=== PATIENT | female | born 1960 | race Caucasian/White ===

== ENCOUNTER 2017-01-30 09:16 | Emergency (ER) | payer OTHER, MEDICAID ==
[~2017-01-30] VITALS: Ht 160 cm; Wt 80.7 kg
[~2017-01-30 09:16] MED LIST: ALBU2TAB4; AMIT25TA9; DIPH25CA39; GLIP-110; LORA-340; METF500T5; RABE20TA5; RESPIRDAL; TEMA15CA91; [UNRECOGNIZED DRUG - OTHER]; [UNRECOGNIZED DRUG - OTHER]
[2017-01-30] MEDS ORDERED: SODIUM CHLORIDE 0.9% 1,000 ML IV ONE (10:01)
[2017-01-30] MEDS ORDERED: InsuLIN REG 1unit/0.01ml Soln (100units/ml) IV ONE ×2 (10:15→12:00)
[2017-01-30 10:32] LABS: Basophils # (auto) 0 uL; Basophils % (auto) 0.3 % (0.0-2.0); DEFINITIVE VIEW TRANSMISSION; Eosinophils # (auto) 0.3 uL; Eosinophils % (auto) 3.1 % (0.0-7.0); Hematocrit 43.2 % (36.0-46.0); Hemoglobin 13.9 g/dL (12.2-16.2); Lymphocytes % (auto) 23.6 % (10.0-50.0); Mean Corpuscular Hemoglobin 26.7 pg (28.0-32.0); Mean Corpuscular Hgb Conc. 32.3 g/dL (32.0-36.0); Mean Corpuscular Volume 82.8 fL (80.0-100.0); Mean Platelet Volume 9.6 fL (7.4-10.4); Monocytes # (auto) 0.5 uL; Monocytes % (auto) 6.5 % (0.0-12.0); Neutrophils # (auto) 5.6 uL; Neutrophils % (auto) 66.5 % (37.0-80.0); Platelet Count (auto) 228 10^3/uL (140-450); Red Cell Distribution Width 13.1 % (11.6-16.0); White Blood Cell 8.4 10^3/uL (4.4-10.8)
[2017-01-30 10:44] LABS: Partial Thromboplastin Time 24.9 sec (22.64-33.71); Prothrombin Time 9.5 sec (9.37-12.3)
[2017-01-30 10:47] LABS: INR 0.87 (0.9-1.15)
[2017-01-30 10:50] LABS: Albumin 3.3 g/dL (3.4-5.0); Anion Gap 9 (5-15); Blood Urea Nitrogen 26 mg/dL (7-18); Calcium 8.4 mg/dL (8.5-10.1); Carbon Dioxide 25 mmol/L (21-32); Chloride 101 mmol/L (98-107); HEMOLYSIS - HIL 1; ICTERIA - HIL 1; LIPEMIA - HIL 1; Potassium 4.9 mmol/L (3.5-5.1); Sodium 135 mmol/L (136-145)
[2017-01-30 10:52] LABS: Aspartate Aminotransferase 22 U/L (15-37); GFR African American 100 mL/min; GFR Non-African American 82 mL/min
[2017-01-30 10:55] LABS: BUN/Creatinine Ratio 33.8; Glucose 426 mg/dL (74-106)
[2017-01-30 11:08] LABS: Alkaline Phosphatase 141 U/L (45-117); Bilirubin, Total 0.1 mg/dL (0.2-1.0); Total Protein 7.2 g/dL (6.4-8.2)
[2017-01-30 11:16] LABS: Urine RBC None Seen /hpf (0 - 4)
[2017-01-30 11:22] LABS: Urine Bilirubin Negative (Negative); Urine Blood Negative /uL (Negative); Urine Color Yellow (Yellow); Urine Ketone Negative (Negative); Urine Nitrite Negative (Negative); Urine Squamous Epithelial Cell FEW /hpf (<5); Urine Urobilinogen Normal (Negative); Urine pH 5.5 (5.0-8.0)
[2017-01-30 11:24] LABS: Urine Glucose 4+ mg/dL (Normal)
[2017-01-30 12:11] VITALS: BP 134/69
== END 2017-01-30 13:02 | disposition home or self-care (01) ==
LOC: ER 09:21
DX: E11.65 Type 2 diabetes mellitus with hyperglycemia (principal); J45.909 Unspecified asthma, uncomplicated; K21.9 Gastro-esophageal reflux disease without esophagitis; F17.210 Nicotine dependence, cigarettes, uncomplicated; Z79.899 Other long term (current) drug therapy; Z90.710 Acquired absence of both cervix and uterus; Z88.0 Allergy status to penicillin
CPT/HCPCS: 36415; 71010; 80053; 80307; 81001; 82962; 84484; 85025; 85610; 85730; 96361; 96374; 96376; 99285; J1815; J7030

== ENCOUNTER 2017-09-15 12:09 | Inpatient (IN) | payer OTHER, MEDICAID ==
[~2017-09-15] VITALS: Ht 160 cm; Wt 87.3 kg
[~2017-09-15 12:09] MED LIST changes: -DIPH25CA39; +DIPH25CA39 PO; -GLIP-110; +GLIP-110 PO; -METF500T5; +METF500T5 PO; -RABE20TA5; +RABE20TA5 PO
[2017-09-15] MEDS ORDERED: SODIUM CHLORIDE 0.9% 1,000 ML IV ONE (12:19)
[2017-09-15] MEDS ORDERED: HALOPERIDOL LACTATE 5 MG/ML INJ VIAL IM ONE (12:30)
[2017-09-15] MEDS ORDERED: LORazepam 2MG/ML-1ML VIAL IV ONE (12:30)
[2017-09-15] MEDS ORDERED: diphenhdrAMINE HCL 50 MG/1 ML VL IV ONE (12:30)
[2017-09-15 12:59] LABS: Basophils # (auto) 0.1 uL; Basophils % (auto) 0.7 % (0.0-2.0); Eosinophils # (auto) 0.3 uL
[2017-09-15 13:02] LABS: Eosinophils % (auto) 1.6 % (0.0-7.0); Hematocrit 44.1 % (36.0-46.0); Hemoglobin 13.9 g/dL (12.2-16.2); Lymphocytes # (auto) 1.9 uL; Lymphocytes % (auto) 10.9 % (10.0-50.0); Mean Corpuscular Hemoglobin 26.3 pg (28.0-32.0); Mean Corpuscular Hgb Conc. 31.6 g/dL (32.0-36.0); Monocytes # (auto) 1.4 uL; Neutrophils # (auto) 13.4 uL; Neutrophils % (auto) 78.8 % (37.0-80.0); Platelet Count (auto) 325 10^3/uL (140-450); Red Blood Cells 5.31 10^6/uL (4.0-5.20); Red Cell Distribution Width 15.4 % (11.8-14.3)
[2017-09-15 13:15] LABS: Albumin 3.9 g/dL (3.4-5.0); BUN/Creatinine Ratio 28.1; Calcium 9.2 mg/dL (8.5-10.1); Potassium 4.2 mmol/L (3.5-5.1)
[2017-09-15 13:18] LABS: Bilirubin, Total 0.3 mg/dL (0.2-1.0); Total Protein 7.8 g/dL (6.4-8.2)
[2017-09-15 15:53] LABS: Alcohol, Urine < 3.0 mg/dL (0-5); Amphetamine Screen, Urine POSITIVE (NEGATIVE); Barbiturate Scree,Urine NEGATIVE (NEGATIVE); Benzodiazephine Screen, Urine NEGATIVE (NEGATIVE); Cannabinoid Screen, Urine NEGATIVE (NEGATIVE); Cocaine Screen, Urine NEGATIVE (NEGATIVE); Opiate Scree,Urine NEGATIVE (NEGATIVE); Phencyclidine Screen, Urine NEGATIVE (NEGATIVE)
[2017-09-15 16:05] LABS: Urine Bacteria NONE SEEN /hpf (None Seen); Urine Blood Negative /uL (Negative); Urine Hyaline Cast FEW /lpf (0 - 2); Urine Mucus FEW (None Seen); Urine Specific Gravity 1.016 (1.001-1.035); Urine WBC 1 /hpf (0 - 5)
[2017-09-15] MEDS: diphenhdrAMINE HCL 25 MG CAP PO SCH (21:15)
[2017-09-15] MEDS ORDERED: TEMAZEPAM 15 MG CAP PO PRN ×2 (21:15→21:30)
[2017-09-15] MEDS ORDERED: SODIUM CHLORIDE 0.9% 1,000 ML IV SCH (21:25)
[2017-09-15] MEDS ORDERED: MORPHINE SULF INJ 2 MG/ML SYRINGE 1ML IV PRN ×2 (21:30)
[2017-09-15] MEDS ORDERED: DIAZEPAM 5 MG/ML 2ML SYRG IV PRN (21:30)
[2017-09-15] MEDS ORDERED: ACETAMINOPHEN 325 MG TAB PO PRN ×2 (21:30)
[2017-09-15] MEDS ORDERED: NITROGLYCERIN 0.4 MG SL TAB SL PRN (21:30)
[2017-09-15] MEDS ORDERED: HYDROcodone-ACET 5/325MG TAB PO PRN (21:30)
[2017-09-15] MEDS ORDERED: DEXTROSE (50%) 50ML SYRG IV ONE (21:30)
[2017-09-15] MEDS ORDERED: DEXTROSE (50%) 50ML SYRG IV PRN (21:30)
[2017-09-15] MEDS ORDERED: ONDANSETRON HCL 4 MG/2 ML VIAL IV PRN ×2 (21:30)
[2017-09-15] MEDS: SODIUM CHLORIDE 0.9% 1,000 ML IV SCH (21:55)
[2017-09-15] MEDS: FAMOTIDINE 20 MG TAB PO SCH (22:00)
[2017-09-15] MEDS ORDERED: ACCU-CHEK COMFORT CURVE STRIP VI ONE (22:00)
[2017-09-15] MEDS ORDERED: InsuLIN REG 1unit/0.01ml Soln (100units/ml) SC ONE (22:00)
[2017-09-15] MEDS: risperiDONE 1 MG TAB PO SCH (22:00)
[2017-09-15] MEDS: AMITRIPTYLINE HCL 25 MG TAB PO SCH (22:00)
[2017-09-15] MEDS ORDERED: clonazePAM 0.5 MG TAB PO SCH (22:00)
[2017-09-15] MEDS ORDERED: DEXAMETHASONE SOD PHOS 10MG/1ML VIAL INJ IV ONE (22:00)
[2017-09-15 22:30] VITALS: BP 144/70
[2017-09-16] MEDS: ACCU-CHEK COMFORT CURVE STRIP VI SCH ×4 (00:06→17:38)
[2017-09-16] MEDS: InsuLIN REG 1unit/0.01ml Soln (100units/ml) SC SCH ×4 (00:06→17:38)
[2017-09-16] MEDS: diphenhdrAMINE HCL 25 MG CAP PO SCH ×3 (05:15→20:59)
[2017-09-16 05:40] LABS: Basophils # (auto) 0 uL; Basophils % (auto) 0.2 % (0.0-2.0); Eosinophils # (auto) 0 uL; Hematocrit 37.6 % (36.0-46.0); Hemoglobin 12.3 g/dL (12.2-16.2); Lymphocytes # (auto) 0.9 uL; Lymphocytes % (auto) 10.7 % (10.0-50.0); Mean Corpuscular Hgb Conc. 32.7 g/dL (32.0-36.0); Mean Corpuscular Volume 82.7 fL (80.0-100.0); Monocytes # (auto) 0.1 uL; Monocytes % (auto) 1.5 % (0.0-12.0); Neutrophils # (auto) 7.6 uL; Neutrophils % (auto) 87.6 % (37.0-80.0); Nucleated Red Blood Cells % 0.4 %; Platelet Count (auto) 246 10^3/uL (140-450); Red Blood Cells 4.55 10^6/uL (4.0-5.20); Red Cell Distribution Width 15.4 % (11.8-14.3); White Blood Cell 8.7 10^3/uL (4.4-10.8)
[2017-09-16 05:57] VITALS: BP 121/59
[2017-09-16 06:05] LABS: BUN/Creatinine Ratio 30.8; Bilirubin, Total 0.3 mg/dL (0.2-1.0); Calcium 7.7 mg/dL (8.5-10.1); Magnesium 2.3 mg/dL (1.6-2.6); Phosphorus 2.9 mg/dL (2.5-4.90); Potassium 4.2 mmol/L (3.5-5.1); Total Protein 6.5 g/dL (6.4-8.2)
[2017-09-16] MEDS: SODIUM CHLORIDE 0.9% 1,000 ML IV SCH ×3 (07:52→21:00)
[2017-09-16] MEDS: glipiZIDE 5 MG TAB PO SCH (08:49)
[2017-09-16] MEDS: metFORMIN HYDROCHLORIDE 500 MG TAB PO SCH ×2 (08:51→17:38)
[2017-09-16 09:00] VITALS: BP 118/70
[2017-09-16] MEDS: PARoxetine 20 MG TAB PO SCH (11:28)
[2017-09-16] MEDS: FAMOTIDINE 20 MG TAB PO SCH ×2 (11:28→20:58)
[2017-09-16] MEDS: ENOXAPARIN SOD 40 MG/0.4 ML SYRINGE SC SCH (11:29)
[2017-09-16] MEDS: clonazePAM 0.5 MG TAB PO SCH (11:29)
[2017-09-16] MEDS: ALBUTEROL SULF 2 MG/5ML ORAL SYRUP PO SCH (12:04)
[2017-09-16 13:00] VITALS: BP 97/53
[2017-09-16] MEDS: HYDROcodone-ACET 5/325MG TAB PO PRN ×2 (16:21→20:59)
[2017-09-16 17:00] VITALS: BP 113/63
[2017-09-16] MEDS: risperiDONE 1 MG TAB PO SCH (20:58)
[2017-09-16] MEDS: AMITRIPTYLINE HCL 25 MG TAB PO SCH (20:58)
[2017-09-16 22:00] VITALS: BP 122/67
[2017-09-17] MEDS: ACCU-CHEK COMFORT CURVE STRIP VI SCH ×4 (00:42→17:22)
[2017-09-17] MEDS: InsuLIN REG 1unit/0.01ml Soln (100units/ml) SC SCH ×4 (00:42→17:23)
[2017-09-17 05:00] VITALS: BP 101/58
[2017-09-17 05:12] LABS: Basophils # (auto) 0.1 uL; Basophils % (auto) 0.6 % (0.0-2.0); Eosinophils # (auto) 0.2 uL; Eosinophils % (auto) 2.3 % (0.0-7.0); Hematocrit 33.9 % (36.0-46.0); Lymphocytes # (auto) 2.4 uL; Mean Corpuscular Hemoglobin 27.1 pg (28.0-32.0); Mean Corpuscular Hgb Conc. 32.6 g/dL (32.0-36.0); Mean Corpuscular Volume 83.3 fL (80.0-100.0); Monocytes # (auto) 0.8 uL; Monocytes % (auto) 10.2 % (0.0-12.0); Neutrophils # (auto) 4.6 uL; Neutrophils % (auto) 56.9 % (37.0-80.0); Nucleated Red Blood Cells % 0.1 %; Platelet Count (auto) 220 10^3/uL (140-450); Red Blood Cells 4.06 10^6/uL (4.0-5.20); Red Cell Distribution Width 15.5 % (11.8-14.3)
[2017-09-17] MEDS: diphenhdrAMINE HCL 25 MG CAP PO SCH ×3 (05:15→21:29)
[2017-09-17 05:30] LABS: Calcium 7.6 mg/dL (8.5-10.1); Phosphorus 2.8 mg/dL (2.5-4.90)
[2017-09-17] MEDS: SODIUM CHLORIDE 0.9% 1,000 ML IV SCH ×3 (05:35→21:29)
[2017-09-17] MEDS: glipiZIDE 5 MG TAB PO SCH (06:33)
[2017-09-17] MEDS: HYDROcodone-ACET 5/325MG TAB PO PRN ×3 (08:19→20:14)
[2017-09-17] MEDS: metFORMIN HYDROCHLORIDE 500 MG TAB PO SCH ×2 (08:20→17:23)
[2017-09-17 09:00] VITALS: BP 98/58
[2017-09-17] MEDS: ENOXAPARIN SOD 40 MG/0.4 ML SYRINGE SC SCH (10:02)
[2017-09-17] MEDS: FAMOTIDINE 20 MG TAB PO SCH ×2 (10:03→21:29)
[2017-09-17] MEDS: PARoxetine 20 MG TAB PO SCH (10:03)
[2017-09-17] MEDS: clonazePAM 0.5 MG TAB PO SCH (10:03)
[2017-09-17] MEDS: ALBUTEROL SULF 2 MG/5ML ORAL SYRUP PO SCH (10:28)
[2017-09-17 13:00] VITALS: BP 178/94
[2017-09-17 17:00] VITALS: BP 93/56
[2017-09-17] MEDS: risperiDONE 1 MG TAB PO SCH (21:28)
[2017-09-17] MEDS: AMITRIPTYLINE HCL 25 MG TAB PO SCH (21:29)
[2017-09-17 22:00] VITALS: BP 110/59
[2017-09-18] MEDS: InsuLIN REG 1unit/0.01ml Soln (100units/ml) SC SCH ×5 (00:06→21:46)
[2017-09-18] MEDS: ACCU-CHEK COMFORT CURVE STRIP VI SCH ×5 (00:06→21:46)
[2017-09-18] MEDS: HYDROcodone-ACET 5/325MG TAB PO PRN ×4 (03:42→22:05)
[2017-09-18 05:00] VITALS: BP 106/53
[2017-09-18] MEDS: diphenhdrAMINE HCL 25 MG CAP PO SCH ×3 (05:32→20:45)
[2017-09-18] MEDS: SODIUM CHLORIDE 0.9% 1,000 ML IV SCH ×2 (05:32→15:27)
[2017-09-18] MEDS: glipiZIDE 5 MG TAB PO SCH (06:51)
[2017-09-18 09:00] VITALS: BP 78/49
[2017-09-18] MEDS: FAMOTIDINE 20 MG TAB PO SCH ×2 (09:35→21:45)
[2017-09-18] MEDS: metFORMIN HYDROCHLORIDE 500 MG TAB PO SCH ×2 (09:35→17:31)
[2017-09-18] MEDS: PARoxetine 20 MG TAB PO SCH (09:36)
[2017-09-18] MEDS: ENOXAPARIN SOD 40 MG/0.4 ML SYRINGE SC SCH (09:36)
[2017-09-18] MEDS: clonazePAM 0.5 MG TAB PO SCH (10:00)
[2017-09-18 13:00] VITALS: BP 105/62
[2017-09-18] MEDS ORDERED: DEXTROSE (50%) 50ML SYRG IV PRN (15:15)
[2017-09-18] MEDS: ALBUTEROL SULF 2 MG/5ML ORAL SYRUP PO SCH (15:42)
[2017-09-18 17:00] VITALS: BP 97/50
[2017-09-18] MEDS ORDERED: LORazepam 2MG/ML-1ML VIAL IV PRN (17:45)
[2017-09-18] MEDS: risperiDONE 1 MG TAB PO SCH (21:45)
[2017-09-18] MEDS: AMITRIPTYLINE HCL 25 MG TAB PO SCH (21:45)
[2017-09-18 22:00] VITALS: BP 107/60
[2017-09-19] MEDS: SODIUM CHLORIDE 0.9% 1,000 ML IV SCH ×2 (01:15→11:15)
[2017-09-19] MEDS: diphenhdrAMINE HCL 25 MG CAP PO SCH ×2 (04:55→13:15)
[2017-09-19 05:00] VITALS: BP 104/63
[2017-09-19 05:52] LABS: Basophils # (auto) 0 uL; Basophils % (auto) 0.7 % (0.0-2.0); Eosinophils # (auto) 0.2 uL; Hematocrit 31.6 % (36.0-46.0); Hemoglobin 10.5 g/dL (12.2-16.2); Lymphocytes % (auto) 34.1 % (10.0-50.0); Mean Corpuscular Hemoglobin 27.6 pg (28.0-32.0); Mean Corpuscular Hgb Conc. 33.3 g/dL (32.0-36.0); Mean Corpuscular Volume 82.7 fL (80.0-100.0); Monocytes # (auto) 0.5 uL; Monocytes % (auto) 9.4 % (0.0-12.0); Neutrophils % (auto) 51.8 % (37.0-80.0); Nucleated Red Blood Cells % 0.1 %; Platelet Count (auto) 222 10^3/uL (140-450); Red Blood Cells 3.82 10^6/uL (4.0-5.20); Red Cell Distribution Width 15.6 % (11.8-14.3); White Blood Cell 5.8 10^3/uL (4.4-10.8)
[2017-09-19 06:29] LABS: BUN/Creatinine Ratio 26.8; Calcium 7.8 mg/dL (8.5-10.1)
[2017-09-19] MEDS: InsuLIN REG 1unit/0.01ml Soln (100units/ml) SC SCH ×3 (06:52→17:00)
[2017-09-19] MEDS: ACCU-CHEK COMFORT CURVE STRIP VI SCH ×3 (06:52→17:00)
[2017-09-19] MEDS: metFORMIN HYDROCHLORIDE 500 MG TAB PO SCH ×2 (08:10→17:11)
[2017-09-19] MEDS: glipiZIDE 5 MG TAB PO SCH (08:29)
[2017-09-19] MEDS: HYDROcodone-ACET 5/325MG TAB PO PRN ×2 (08:30→17:10)
[2017-09-19 09:00] VITALS: BP 99/55
[2017-09-19] MEDS: ENOXAPARIN SOD 40 MG/0.4 ML SYRINGE SC SCH (10:01)
[2017-09-19] MEDS: clonazePAM 0.5 MG TAB PO SCH (10:02)
[2017-09-19] MEDS: PARoxetine 20 MG TAB PO SCH (10:02)
[2017-09-19] MEDS: ALBUTEROL SULF 2 MG/5ML ORAL SYRUP PO SCH (10:02)
[2017-09-19] MEDS: FAMOTIDINE 20 MG TAB PO SCH (10:02)
[2017-09-19 13:00] VITALS: BP 89/52
== END 2017-09-19 18:56 | disposition home health service (06) | DRG 183 ==
LOC: EDBD 12:09 → ER 12:09 → TELE 12:10 → TELE-WESTW 23:25
PROVIDERS: ADMIT Nurse Practitioner Acute Care; ATTEND Internal Medicine
DX: S22.42XA Multiple fractures of ribs, left side, initial encounter for closed fracture (principal); G92 Toxic encephalopathy; J90 Pleural effusion, not elsewhere classified; F20.9 Schizophrenia, unspecified; E11.9 Type 2 diabetes mellitus without complications; D72.829 Elevated white blood cell count, unspecified; D17.71 Benign lipomatous neoplasm of kidney; E78.5 Hyperlipidemia, unspecified; J98.11 Atelectasis; M54.9 Dorsalgia, unspecified; W18.39XA Other fall on same level, initial encounter; F15.90 Other stimulant use, unspecified, uncomplicated; F17.210 Nicotine dependence, cigarettes, uncomplicated; F31.9 Bipolar disorder, unspecified; F43.9 Reaction to severe stress, unspecified; I10 Essential (primary) hypertension; J45.909 Unspecified asthma, uncomplicated; K21.9 Gastro-esophageal reflux disease without esophagitis; M48.061 Spinal stenosis, lumbar region without neurogenic claudication; M51.16 Intervertebral disc disorders with radiculopathy, lumbar region; Z83.3 Family history of diabetes mellitus; Z82.3 Family history of stroke; Z90.710 Acquired absence of both cervix and uterus; Y93.89 Activity, other specified; Y92.89 Other specified places as the place of occurrence of the external cause; Z71.51 Drug abuse counseling and surveillance of drug abuser; Z79.899 Other long term (current) drug therapy; Z88.0 Allergy status to penicillin
CPT/HCPCS: 36415; 51702; 70450; 71045; 71101; 72131; 72148; 80048; 80053; 80061; 80307; 81001; 82550; 82962; 83036; 83735; 84100; 84443; 85025; 85652; 86141; 87040; 93005; 94761; 96361; 96372; 96374; 96375; 97116; 97163; 97530; J1100; J1815

== ENCOUNTER 2017-10-02 08:38 | Inpatient (IN) | payer OTHER, MEDICAID ==
[~2017-10-02] VITALS: Ht 160 cm; Wt 78.0 kg
[2017-10-02 10:17] LABS: Basophils # (auto) 0.1 uL; Eosinophils # (auto) 0.2 uL; Monocytes # (auto) 0.7 uL; White Blood Cell 9.9 10^3/uL (4.4-10.8)
[2017-10-02 10:19] LABS: Basophils % (auto) 0.7 % (0.0-2.0); Eosinophils % (auto) 2.1 % (0.0-7.0); Hematocrit 38.9 % (36.0-46.0); Hemoglobin 12.5 g/dL (12.2-16.2); Lymphocytes # (auto) 1.9 uL; Mean Corpuscular Hemoglobin 26.4 pg (28.0-32.0); Mean Corpuscular Hgb Conc. 32.1 g/dL (32.0-36.0); Monocytes % (auto) 7.4 % (0.0-12.0); Neutrophils % (auto) 70.8 % (37.0-80.0); Platelet Count (auto) 354 10^3/uL (140-450); Red Blood Cells 4.74 10^6/uL (4.0-5.20); Red Cell Distribution Width 16.2 % (11.8-14.3)
[2017-10-02 10:35] LABS: Albumin 3.3 g/dL (3.4-5.0); Calcium 9.3 mg/dL (8.5-10.1)
[2017-10-02 10:39] LABS: Bilirubin, Total 0.3 mg/dL (0.2-1.0); Total Protein 7.4 g/dL (6.4-8.2)
[2017-10-02] MEDS ORDERED: ONDANSETRON HCL 4 MG/2 ML VIAL IV PRN (14:45)
[2017-10-02] MEDS ORDERED: DEXTROSE (50%) 50ML SYRG IV PRN (14:45)
[2017-10-02] MEDS ORDERED: PANTOPRAZOLE 40 MG/10 ML VIAL IV ONE (14:45)
[2017-10-02] MEDS ORDERED: NICOTINE 21MG/24 HR TOPICAL PATCH TD ONE (14:45)
[2017-10-02] MEDS ORDERED: HALOPERIDOL LACTATE 5 MG/ML INJ VIAL IM PRN (14:45)
[2017-10-02] MEDS: HYDROcodone-ACET 5/325MG TAB PO PRN ×2 (16:14→20:42)
[2017-10-02 16:52] LABS: INR 0.92 (0.9-1.15)
[2017-10-02] MEDS: InsuLIN REG 1unit/0.01ml Soln (100units/ml) SC SCH ×2 (17:00→22:00)
[2017-10-02] MEDS: ACCU-CHEK COMFORT CURVE STRIP VI SCH ×2 (17:10→22:00)
[2017-10-02] MEDS: IPRATROPIUM BROM 0.5 MG/2.5ML INH SOL NEB SCH (18:00)
[2017-10-02] MEDS: ALBUTEROL SULF 2.5 MG/0.5ML(0.5%) NEB SOLN NEB SCH (18:00)
[2017-10-02 19:50] LABS: Urine Bacteria NONE SEEN /hpf (None Seen); Urine Blood Negative /uL (Negative); Urine Mucus FEW (None Seen); Urine Specific Gravity 1.027 (1.001-1.035); Urine WBC 2 /hpf (0 - 5)
[2017-10-02 20:00] LABS: Alcohol, Urine < 3.0 mg/dL (0-5); Amphetamine Screen, Urine NEGATIVE (NEGATIVE); Barbiturate Scree,Urine NEGATIVE (NEGATIVE); Benzodiazephine Screen, Urine NEGATIVE (NEGATIVE); Cannabinoid Screen, Urine NEGATIVE (NEGATIVE); Cocaine Screen, Urine NEGATIVE (NEGATIVE); Opiate Scree,Urine POSITIVE (NEGATIVE); Phencyclidine Screen, Urine NEGATIVE (NEGATIVE)
[2017-10-02 20:35] VITALS: BP 112/72
[2017-10-02] MEDS: ALPRAZolam 0.25 MG TAB PO PRN (20:41)
[2017-10-02 21:55] VITALS: BP 114/64
[2017-10-02 22:00] VITALS: BP 112/56
[2017-10-03] MEDS: ALBUTEROL SULF 2.5 MG/0.5ML(0.5%) NEB SOLN NEB SCH ×4 (00:42→19:26)
[2017-10-03] MEDS: IPRATROPIUM BROM 0.5 MG/2.5ML INH SOL NEB SCH ×4 (00:42→19:26)
[2017-10-03] MEDS: MORPHINE SULFATE 4 MG/ML SYR/VIAL IV PRN ×4 (01:03→20:49)
[2017-10-03] MEDS: CARISOPRODOL 350 MG TAB PO PRN (01:03)
[2017-10-03] MEDS: HYDROcodone-ACET 5/325MG TAB PO PRN ×2 (05:27→17:57)
[2017-10-03] MEDS: ALPRAZolam 0.25 MG TAB PO PRN ×2 (05:27→17:57)
[2017-10-03 05:32] LABS: Basophils # (auto) 0.1 uL; Basophils % (auto) 0.6 % (0.0-2.0); Eosinophils # (auto) 0.3 uL; Eosinophils % (auto) 3.5 % (0.0-7.0); Hematocrit 36.9 % (36.0-46.0); Hemoglobin 12.1 g/dL (12.2-16.2); Lymphocytes # (auto) 2.1 uL; Lymphocytes % (auto) 21.9 % (10.0-50.0); Mean Corpuscular Hemoglobin 26.8 pg (28.0-32.0); Mean Corpuscular Hgb Conc. 32.7 g/dL (32.0-36.0); Monocytes # (auto) 0.8 uL; Monocytes % (auto) 8.5 % (0.0-12.0); Neutrophils # (auto) 6.2 uL; Neutrophils % (auto) 65.5 % (37.0-80.0); Nucleated Red Blood Cells % 0.1 %; Platelet Count (auto) 315 10^3/uL (140-450); Red Cell Distribution Width 16.2 % (11.8-14.3); White Blood Cell 9.5 10^3/uL (4.4-10.8)
[2017-10-03 05:47] VITALS: BP 112/66
[2017-10-03 05:47] LABS: Calcium 8.6 mg/dL (8.5-10.1); Potassium 4.1 mmol/L (3.5-5.1)
[2017-10-03] MEDS: ACCU-CHEK COMFORT CURVE STRIP VI SCH ×4 (06:45→23:00)
[2017-10-03] MEDS: InsuLIN REG 1unit/0.01ml Soln (100units/ml) SC SCH ×4 (06:45→23:00)
[2017-10-03 07:46] VITALS: BP 96/52
[2017-10-03 07:57] VITALS: BP 96/52
[2017-10-03] MEDS ORDERED: PANTOPRAZOLE 40 MG/10 ML VIAL IV SCH (10:00)
[2017-10-03] MEDS: NICOTINE 21MG/24 HR TOPICAL PATCH TD SCH (11:05)
[2017-10-03] MEDS: PARoxetine 20 MG TAB PO SCH (11:05)
[2017-10-03 11:48] VITALS: BP 122/63
[2017-10-03] MEDS ORDERED: fentaNYL CITRATE 100 MCG/2 ML VL ONE (13:26)
[2017-10-03] MEDS ORDERED: MIDAZOLAM HCL 1MG/1ML-2 ML VIAL ONE (13:26)
[2017-10-03 22:00] VITALS: BP 129/69
[2017-10-04] MEDS: ONDANSETRON HCL 4 MG/2 ML VIAL IV PRN ×4 (04:45→22:17)
[2017-10-04] MEDS: MORPHINE SULFATE 4 MG/ML SYR/VIAL IV PRN ×6 (04:45→22:17)
[2017-10-04 05:36] VITALS: BP 122/66
[2017-10-04 05:58] LABS: Eosinophils # (auto) 0.2 uL; Lymphocytes # (auto) 1.7 uL; Monocytes # (auto) 0.8 uL; Monocytes % (auto) 8.4 % (0.0-12.0)
[2017-10-04 06:01] LABS: Basophils # (auto) 0 uL; Basophils % (auto) 0.5 % (0.0-2.0); Eosinophils % (auto) 2.4 % (0.0-7.0); Hematocrit 38.1 % (36.0-46.0); Hemoglobin 12.4 g/dL (12.2-16.2); Lymphocytes % (auto) 17.5 % (10.0-50.0); Mean Corpuscular Hemoglobin 26.9 pg (28.0-32.0); Mean Corpuscular Hgb Conc. 32.7 g/dL (32.0-36.0); Mean Corpuscular Volume 82.4 fL (80.0-100.0); Neutrophils # (auto) 6.8 uL; Neutrophils % (auto) 71.2 % (37.0-80.0); Nucleated Red Blood Cells % 0.1 %; Platelet Count (auto) 323 10^3/uL (140-450); Red Blood Cells 4.62 10^6/uL (4.0-5.20); Red Cell Distribution Width 15.7 % (11.8-14.3); White Blood Cell 9.6 10^3/uL (4.4-10.8)
[2017-10-04] MEDS: ALBUTEROL SULF 2.5 MG/0.5ML(0.5%) NEB SOLN NEB SCH ×4 (06:16→19:16)
[2017-10-04] MEDS: IPRATROPIUM BROM 0.5 MG/2.5ML INH SOL NEB SCH ×4 (06:16→19:16)
[2017-10-04] MEDS: ACCU-CHEK COMFORT CURVE STRIP VI SCH ×4 (07:02→22:11)
[2017-10-04] MEDS: InsuLIN REG 1unit/0.01ml Soln (100units/ml) SC SCH ×4 (07:02→22:11)
[2017-10-04 08:08] VITALS: BP 119/68
[2017-10-04] MEDS: ALPRAZolam 0.25 MG TAB PO PRN ×2 (08:49→18:12)
[2017-10-04] MEDS: PARoxetine 20 MG TAB PO SCH (09:49)
[2017-10-04] MEDS: PANTOPRAZOLE 40 MG TAB PO SCH (09:49)
[2017-10-04] MEDS: NICOTINE 21MG/24 HR TOPICAL PATCH TD SCH (10:05)
[2017-10-04 12:17] VITALS: BP 112/68
[2017-10-04] MEDS: HYDROcodone-ACET 5/325MG TAB PO PRN (16:27)
[2017-10-04] MEDS ORDERED: LACTULOSE 20Gm/30ML SOLN PO ONE (17:15)
[2017-10-04 22:20] VITALS: BP 119/76
[2017-10-04] MEDS: CARISOPRODOL 350 MG TAB PO PRN (23:40)
[2017-10-05] MEDS: ALBUTEROL SULF 2.5 MG/0.5ML(0.5%) NEB SOLN NEB SCH ×3 (00:28→18:49)
[2017-10-05] MEDS: IPRATROPIUM BROM 0.5 MG/2.5ML INH SOL NEB SCH ×3 (00:28→18:49)
[2017-10-05] MEDS: ONDANSETRON HCL 4 MG/2 ML VIAL IV PRN ×4 (03:17→19:09)
[2017-10-05] MEDS: MORPHINE SULFATE 4 MG/ML SYR/VIAL IV PRN ×4 (03:18→19:08)
[2017-10-05 05:12] VITALS: BP 103/68
[2017-10-05] MEDS: ACCU-CHEK COMFORT CURVE STRIP VI SCH ×4 (06:43→21:28)
[2017-10-05] MEDS: HYDROcodone-ACET 5/325MG TAB PO PRN ×3 (06:46→21:28)
[2017-10-05] MEDS: ALPRAZolam 0.25 MG TAB PO PRN ×2 (06:46→21:27)
[2017-10-05] MEDS: InsuLIN REG 1unit/0.01ml Soln (100units/ml) SC SCH ×4 (06:46→21:28)
[2017-10-05 08:00] VITALS: BP 112/65
[2017-10-05 09:00] VITALS: BP 112/65
[2017-10-05] MEDS: PARoxetine 20 MG TAB PO SCH (10:44)
[2017-10-05] MEDS: PANTOPRAZOLE 40 MG TAB PO SCH (10:45)
[2017-10-05] MEDS ORDERED: MAGNESIUM CITRATE SOLUTION 300 ML BTL PO ONE (10:45)
[2017-10-05] MEDS: NICOTINE 21MG/24 HR TOPICAL PATCH TD SCH (10:46)
[2017-10-05 13:00] VITALS: BP 120/66
[2017-10-05 17:00] VITALS: BP 119/62
[2017-10-05] MEDS ORDERED: CLON1TAB3 PO (18:59)
[2017-10-05] MEDS ORDERED: INSLANTI SC (18:59)
[2017-10-05] MEDS ORDERED: HYDR-4072 PO (18:59)
[2017-10-05] MEDS ORDERED: ZOLP10TA PO (18:59)
[2017-10-05] MEDS ORDERED: TIZA4CAP PO (18:59)
[2017-10-05] MEDS ORDERED: PAR20T PO (18:59)
[2017-10-05] MEDS ORDERED: CLON1TAB PO (18:59)
[2017-10-05 22:03] VITALS: BP 109/63
[2017-10-05] MEDS: CARISOPRODOL 350 MG TAB PO PRN (22:49)
[2017-10-06] VITALS (7 sets, daily range): BP systolic 99–139; BP diastolic 55–68
[2017-10-06] MEDS: ONDANSETRON HCL 4 MG/2 ML VIAL IV PRN ×2 (00:27→04:46)
[2017-10-06] MEDS: MORPHINE SULFATE 4 MG/ML SYR/VIAL IV PRN ×3 (00:28→10:01)
[2017-10-06] MEDS: IPRATROPIUM BROM 0.5 MG/2.5ML INH SOL NEB SCH ×5 (00:49→19:22)
[2017-10-06] MEDS: ALBUTEROL SULF 2.5 MG/0.5ML(0.5%) NEB SOLN NEB SCH ×5 (00:49→19:22)
[2017-10-06] MEDS: ACCU-CHEK COMFORT CURVE STRIP VI SCH ×4 (06:47→22:00)
[2017-10-06] MEDS: InsuLIN REG 1unit/0.01ml Soln (100units/ml) SC SCH ×4 (06:48→22:00)
[2017-10-06] MEDS: HYDROcodone-ACET 5/325MG TAB PO PRN ×4 (06:48→22:50)
[2017-10-06] MEDS: PANTOPRAZOLE 40 MG TAB PO SCH (10:03)
[2017-10-06] MEDS: PARoxetine 20 MG TAB PO SCH (10:03)
[2017-10-06] MEDS: NICOTINE 21MG/24 HR TOPICAL PATCH TD SCH (10:03)
[2017-10-06] MEDS: CARISOPRODOL 350 MG TAB PO PRN (11:24)
[2017-10-06] MEDS: ALPRAZolam 0.25 MG TAB PO PRN (17:08)
[2017-10-07] MEDS: CARISOPRODOL 350 MG TAB PO PRN (01:21)
[2017-10-07 05:13] VITALS: BP 112/66
[2017-10-07] MEDS: ALBUTEROL SULF 2.5 MG/0.5ML(0.5%) NEB SOLN NEB SCH (06:20)
[2017-10-07] MEDS: IPRATROPIUM BROM 0.5 MG/2.5ML INH SOL NEB SCH (06:20)
[2017-10-07] MEDS: HYDROcodone-ACET 5/325MG TAB PO PRN (06:30)
[2017-10-07] MEDS: ACCU-CHEK COMFORT CURVE STRIP VI SCH (06:30)
[2017-10-07] MEDS: InsuLIN REG 1unit/0.01ml Soln (100units/ml) SC SCH (06:36)
[2017-10-07 08:46] VITALS: BP 112/66
[2017-10-07 08:51] VITALS: BP 112/66
[2017-10-07 09:00] VITALS: BP 128/67
== END 2017-10-07 09:10 | disposition home or self-care (01) | DRG 186 ==
LOC: ER 08:38 → OVERFLOW 08:39 → WEST WING 19:35
PROVIDERS: ADMIT Internal Medicine; ATTEND Internal Medicine
PROC: 0W9B30Z Drainage of Left Pleural Cavity with Drainage Device, Percutaneous Approach (ICD-10-PCS; principal; 2017-10-03)
DX: J94.2 Hemothorax (principal); J96.00 Acute respiratory failure, unspecified whether with hypoxia or hypercapnia; E44.1 Mild protein-calorie malnutrition; J44.9 Chronic obstructive pulmonary disease, unspecified; F20.9 Schizophrenia, unspecified; E11.65 Type 2 diabetes mellitus with hyperglycemia; F17.210 Nicotine dependence, cigarettes, uncomplicated; E78.5 Hyperlipidemia, unspecified; I10 Essential (primary) hypertension; F41.9 Anxiety disorder, unspecified; F15.10 Other stimulant abuse, uncomplicated; G47.00 Insomnia, unspecified; G89.29 Other chronic pain; M54.5 Low back pain; F31.9 Bipolar disorder, unspecified; K21.9 Gastro-esophageal reflux disease without esophagitis; Z82.3 Family history of stroke; Z83.3 Family history of diabetes mellitus; Z90.710 Acquired absence of both cervix and uterus; Z91.81 History of falling; Z79.899 Other long term (current) drug therapy; Z68.30 Body mass index [BMI] 30.0-30.9, adult; Z88.0 Allergy status to penicillin; Z88.1 Allergy status to other antibiotic agents
CPT/HCPCS: 10022; 32555; 36415; 71045; 71046; 71250; 76604; 76942; 80048; 80053; 80307; 81001; 82962; 83986; 85025; 85610; 85730; 87070; 87205; 89051; 94640; 96374; 96375; 97163; C1729; C9113; J1815; J2250; J2405

== ENCOUNTER 2018-06-12 22:02 | Emergency (ER) | payer OTHER, MEDICAID ==
[~2018-06-12] VITALS: Ht 167.6 cm; Wt 104.3 kg
[~2018-06-12 22:02] MED LIST changes: -ALBU2TAB4; -AMIT25TA9; +CLON1TAB PO; +HYDR-4072 PO; +INSLANTI SC; -LORA-340; +PAR20T PO; -RESPIRDAL; -TEMA15CA91; +TIZA4CAP PO; -[UNRECOGNIZED DRUG - OTHER]; -[UNRECOGNIZED DRUG - OTHER]
[2018-06-12 22:09] VITALS: BP 170/88
== END 2018-06-12 23:34 | disposition left against medical advice (07) ==
LOC: EDBD 22:02 → ER 22:04
DX: M54.9 Dorsalgia, unspecified (principal); Z53.21 Procedure and treatment not carried out due to patient leaving prior to being seen by health care provider

== ENCOUNTER 2019-02-04 06:50 | Emergency (ER) | payer OTHER, MEDICAID ==
[~2019-02-04] VITALS: Ht 154.9 cm; Wt 81.2 kg
[2019-02-04 08:03] VITALS: BP 141/75
[2019-02-04] MEDS ORDERED: KETOROLAC TROMETH 60MG/2ML VIAL IM ONE (08:45)
== END 2019-02-04 09:00 | disposition home or self-care (01) ==
LOC: ER 06:50
DX: M25.561 Pain in right knee (principal); J45.909 Unspecified asthma, uncomplicated; E11.9 Type 2 diabetes mellitus without complications; K21.9 Gastro-esophageal reflux disease without esophagitis; E78.00 Pure hypercholesterolemia, unspecified; I10 Essential (primary) hypertension; F17.210 Nicotine dependence, cigarettes, uncomplicated; Z90.710 Acquired absence of both cervix and uterus; Z90.89 Acquired absence of other organs; Z88.0 Allergy status to penicillin; Z88.1 Allergy status to other antibiotic agents; Z88.8 Allergy status to other drugs, medicaments and biological substances; Z79.4 Long term (current) use of insulin; Z79.899 Other long term (current) drug therapy
CPT/HCPCS: 73562; 82962; J1885

== ENCOUNTER 2019-04-16 06:02 | Emergency (ER) | payer OTHER, MEDICAID ==
[~2019-04-16] VITALS: Ht 154.9 cm; Wt 81.2 kg
[2019-04-16 06:20] VITALS: BP 119/61
[2019-04-16] MEDS ORDERED: KETOROLAC TROMETH 60MG/2ML VIAL IM ONE (08:00)
== END 2019-04-16 08:26 | disposition home or self-care (01) ==
LOC: ER 06:04
DX: S80.02XA Contusion of left knee, initial encounter (principal); J45.909 Unspecified asthma, uncomplicated; E11.9 Type 2 diabetes mellitus without complications; K21.9 Gastro-esophageal reflux disease without esophagitis; E78.5 Hyperlipidemia, unspecified; I10 Essential (primary) hypertension; F17.210 Nicotine dependence, cigarettes, uncomplicated; F15.10 Other stimulant abuse, uncomplicated; W01.0XXA Fall on same level from slipping, tripping and stumbling without subsequent striking against object, initial encounter; Y93.01 Activity, walking, marching and hiking; Y92.090 Kitchen in other non-institutional residence as the place of occurrence of the external cause; Y99.8 Other external cause status
CPT/HCPCS: 73562; 96372; 99283; J1885

== ENCOUNTER 2019-06-06 17:22 | Emergency (ER) | payer OTHER, MEDICAID ==
[~2019-06-06] VITALS: Ht 154.9 cm; Wt 83.9 kg
[~2019-06-06 17:22] MED LIST changes: +METF-916 PO; -METF500T5 PO
[2019-06-06 18:27] VITALS: BP 131/88
[2019-06-06] MEDS ORDERED: ACETAMINOPHEN/CODEINE#3 (300/30mg) TAB PO ONE (18:30)
[2019-06-06] MEDS ORDERED: cefTRIAXone SOD 1,000 MG VL IM ONE (18:30)
[2019-06-06] MEDS ORDERED: ACETAMINOPHEN 325 MG TAB PO ONE (18:45)
== END 2019-06-06 19:08 | disposition home or self-care (01) ==
LOC: ER 17:22
DX: S61.431A Puncture wound without foreign body of right hand, initial encounter (principal); S60.221A Contusion of right hand, initial encounter; J45.909 Unspecified asthma, uncomplicated; E11.9 Type 2 diabetes mellitus without complications; K21.9 Gastro-esophageal reflux disease without esophagitis; E78.5 Hyperlipidemia, unspecified; I10 Essential (primary) hypertension; Z90.710 Acquired absence of both cervix and uterus; F17.210 Nicotine dependence, cigarettes, uncomplicated; F15.10 Other stimulant abuse, uncomplicated; Z88.0 Allergy status to penicillin; Z88.1 Allergy status to other antibiotic agents; Z88.8 Allergy status to other drugs, medicaments and biological substances; Z79.899 Other long term (current) drug therapy; W27.2XXA Contact with scissors, initial encounter; Y93.89 Activity, other specified; Y92.89 Other specified places as the place of occurrence of the external cause; Y99.8 Other external cause status
CPT/HCPCS: 73130; 96372; 99283; J0696

== ENCOUNTER 2019-09-13 14:56 | Emergency (ER) | payer OTHER, MEDICAID ==
[~2019-09-13] VITALS: Ht 154.9 cm; Wt 78.0 kg
[2019-09-13 15:05] VITALS: BP 115/67
[2019-09-13] MEDS ORDERED: ONDANSETRON ODT 4 MG TAB PO ONE (16:30)
== END 2019-09-13 17:42 | disposition home or self-care (01) ==
LOC: ER 14:56
DX: R11.0 Nausea (principal); F20.9 Schizophrenia, unspecified; E11.9 Type 2 diabetes mellitus without complications; F17.210 Nicotine dependence, cigarettes, uncomplicated; J45.909 Unspecified asthma, uncomplicated; K21.9 Gastro-esophageal reflux disease without esophagitis; E78.5 Hyperlipidemia, unspecified; Z90.710 Acquired absence of both cervix and uterus; Z88.0 Allergy status to penicillin; Z88.1 Allergy status to other antibiotic agents; Z79.899 Other long term (current) drug therapy
CPT/HCPCS: 99283; Q0162

== ENCOUNTER 2019-09-15 11:20 | Emergency (ER) | payer OTHER, MEDICAID ==
[~2019-09-15] VITALS: Ht 157.5 cm; Wt 78.0 kg
[2019-09-15 11:52] VITALS: BP 124/96
== END 2019-09-15 15:14 | disposition left against medical advice (07) ==
LOC: ER 11:20
DX: M54.9 Dorsalgia, unspecified (principal); M25.561 Pain in right knee; R51 Headache; Z53.21 Procedure and treatment not carried out due to patient leaving prior to being seen by health care provider

== ENCOUNTER 2019-09-17 08:58 | Emergency (ER) | payer OTHER, MEDICAID ==
[~2019-09-17] VITALS: Ht 170.2 cm; Wt 86.2 kg
[2019-09-17 10:46] LABS: Basophils # (auto) 0 uL; Basophils % (auto) 0.4 % (0.0-2.0); Eosinophils # (auto) 0.3 uL; Eosinophils % (auto) 3.7 % (0.0-7.0); Hematocrit 38.5 % (36.0-46.0); Hemoglobin 12.8 g/dL (12.2-16.2); Lymphocytes % (auto) 21.5 % (10.0-50.0); Mean Corpuscular Hgb Conc. 33.2 g/dL (32.0-36.0); Mean Corpuscular Volume 84.4 fL (80.0-100.0); Monocytes # (auto) 0.7 uL; Monocytes % (auto) 7.5 % (0.0-12.0); Neutrophils # (auto) 6.2 uL; Neutrophils % (auto) 66.9 % (37.0-80.0); Nucleated Red Blood Cells % 0.1 %; Platelet Count (auto) 258 10^3/uL (140-450); Red Blood Cells 4.56 10^6/uL (4.0-5.20); Red Cell Distribution Width 16.1 % (11.8-14.3); White Blood Cell 9.2 10^3/uL (4.4-10.8)
[2019-09-17 11:00] LABS: Albumin 3.7 g/dL (3.4-5.0); Anion Gap 5 (5-15); Blood Urea Nitrogen 15 mg/dL (7-18); Calcium 8.9 mg/dL (8.5-10.1); Carbon Dioxide 26 mmol/L (21-32); Chloride 107 mmol/L (98-107); Glucose 167 mg/dL (74-106); Potassium 3.7 mmol/L (3.5-5.1); Sodium 138 mmol/L (136-145)
[2019-09-17 11:03] LABS: INR 0.99 (0.9-1.15); Partial Thromboplastin Time 27.3 sec (23.64-32.05)
[2019-09-17 11:05] LABS: Alanine Aminotransferase 25 U/L (13-56); Alkaline Phosphatase 113 U/L (45-117); Aspartate Aminotransferase 21 U/L (15-37); BUN/Creatinine Ratio 27.3; Bilirubin, Total 0.4 mg/dL (0.2-1.0); GFR African American 146 mL/min; GFR Non-African American 121 mL/min; Total Protein 7.4 g/dL (6.4-8.2)
[2019-09-17 11:56] VITALS: BP 138/73
== END 2019-09-17 16:47 | disposition home or self-care (01) ==
LOC: EDBD 08:58 → ER 08:58
DX: R07.89 Other chest pain (principal); F20.9 Schizophrenia, unspecified; M19.90 Unspecified osteoarthritis, unspecified site; J45.909 Unspecified asthma, uncomplicated; E11.9 Type 2 diabetes mellitus without complications; K21.9 Gastro-esophageal reflux disease without esophagitis; E78.5 Hyperlipidemia, unspecified; I10 Essential (primary) hypertension; F17.210 Nicotine dependence, cigarettes, uncomplicated; Z79.899 Other long term (current) drug therapy; Z88.6 Allergy status to analgesic agent; Z88.1 Allergy status to other antibiotic agents; Z88.0 Allergy status to penicillin
CPT/HCPCS: 36415; 71045; 80053; 83880; 84484; 85025; 85610; 85730; 93005

== ENCOUNTER 2019-10-12 13:39 | Emergency (ER) | payer OTHER, MEDICAID ==
[~2019-10-12] VITALS: Ht 162.6 cm; Wt 81.6 kg
[2019-10-12 15:19] VITALS: BP 154/75
== END 2019-10-12 15:30 | disposition left against medical advice (07) ==
LOC: EDBD 13:39 → ER 13:39
DX: M54.9 Dorsalgia, unspecified (principal); Z76.0 Encounter for issue of repeat prescription; Z53.21 Procedure and treatment not carried out due to patient leaving prior to being seen by health care provider

== ENCOUNTER 2019-11-19 14:09 | Emergency (ER) | payer OTHER, MEDICAID ==
[~2019-11-19] VITALS: Ht 154.9 cm; Wt 70.4 kg
[2019-11-19 14:25] VITALS: BP 167/65
== END 2019-11-19 14:59 | disposition home or self-care (01) ==
LOC: ER 14:09
DX: R50.9 Fever, unspecified (principal); Z53.21 Procedure and treatment not carried out due to patient leaving prior to being seen by health care provider

== ENCOUNTER 2020-01-09 04:47 | Emergency (ER) | payer OTHER, MEDICAID ==
[~2020-01-09] VITALS: Ht 162.6 cm; Wt 72.6 kg
[2020-01-09] MEDS ORDERED: SODIUM CHLORIDE 0.9% 1,000 ML IVB ONE (04:54)
[2020-01-09] MEDS ORDERED: HALOPERIDOL LACTATE 5 MG/ML INJ VIAL IM ONE (05:00)
[2020-01-09] MEDS ORDERED: InsuLIN REG 1unit/0.01ml Soln (100units/ml) IV ONE ×2 (05:30)
[2020-01-09 05:35] LABS: Basophils # (auto) 0 10 ^3/uL (0-0.2); Basophils % (auto) 0.5 % (0.0-2.0); Eosinophils # (auto) 0.2 10 ^3/uL (0-0.8); Eosinophils % (auto) 1.9 % (0.0-7.0); Hematocrit 41.2 % (36.0-46.0); Hemoglobin 13.2 g/dL (12.2-16.2); Lymphocytes # (auto) 1.4 10 ^3/uL (0.4-5.4); Lymphocytes % (auto) 16.3 % (10.0-50.0); Mean Corpuscular Volume 81.3 fL (80.0-100.0); Monocytes # (auto) 0.6 10 ^3/uL (0-1.3); Monocytes % (auto) 6.2 % (0.0-12.0); Neutrophils # (auto) 6.6 10 ^3/uL (1.6-8.6); Neutrophils % (auto) 75.1 % (37.0-80.0); Platelet Count (auto) 286 10^3/uL (140-450); Red Blood Cells 5.07 10^6/uL (4.0-5.20); Red Cell Distribution Width 15.9 % (11.8-14.3); White Blood Cell 8.8 10^3/uL (4.4-10.8)
[2020-01-09 05:50] LABS: Alanine Aminotransferase 48 U/L (13-56); Albumin 3.3 g/dL (3.4-5.0); Anion Gap 9 (5-15); Aspartate Aminotransferase 28 U/L (15-37); BUN/Creatinine Ratio 22.6; Blood Alcohol < 3.0 mg/dL (0-5); Blood Urea Nitrogen 12 mg/dL (7-18); Calcium 8.3 mg/dL (8.5-10.1); Carbon Dioxide 23 mmol/L (21-32); Chloride 97 mmol/L (98-107); GFR African American 152 mL/min; GFR Non-African American 126 mL/min; Glucose 372 mg/dL (74-106); Potassium 4.2 mmol/L (3.5-5.1); Sodium 129 mmol/L (136-145)
[2020-01-09 05:55] LABS: Alkaline Phosphatase 160 U/L (45-117); Bilirubin, Total 0.6 mg/dL (0.2-1.0); Creatine Kinase IFCC 138 U/L (26-192); Total Protein 7.7 g/dL (6.4-8.2)
[2020-01-09 05:56] LABS: Urine Bacteria NONE SEEN /hpf (None Seen); Urine Blood Negative /uL (Negative); Urine Hyaline Cast FEW /lpf (0 - 2); Urine Specific Gravity 1.036 (1.001-1.035); Urine WBC 1 /hpf (0 - 5)
[2020-01-09 06:13] LABS: Alcohol, Urine < 3.0 mg/dL (0-5); Amphetamine Screen, Urine POSITIVE (NEGATIVE); Barbiturate Scree,Urine NEGATIVE (NEGATIVE); Benzodiazephine Screen, Urine NEGATIVE (NEGATIVE); Cannabinoid Screen, Urine NEGATIVE (NEGATIVE); Cocaine Screen, Urine NEGATIVE (NEGATIVE); Opiate Scree,Urine NEGATIVE (NEGATIVE); Phencyclidine Screen, Urine NEGATIVE (NEGATIVE)
--- NOTE | 2020-01-09 13:21 | NUR ---
assessment Patient is a 59-year-old female with mental disorders. Per patient she is homeless and has been living in the streets. Patient informed me she has schizophrenia disorder. Patient stated she receives SSI with an amount of [phone] and her bank carrier is [email or web address]. Patient stated she is unable to access her account due to no ID or debit card. Patient stated she would like to be placed at a homeless half-way. Patient stated her mother is Radha ph: ([phone]) and she does not have a good relationship with her and does not want to contact her for help. Discussed with patient how to obtain service through the [facility] and local [facility]. Provided patient with community resources and offered her with taxi voucher within 30 miles and patient agreed. Patient accepted resources. Patient will discharge to [facility] address: [id number]. Patient will need to arrive at 9:00 am on Monday01/10/20. Provided information to clothes closet and meal prior to discharge. Completed homeless assessment and patient signed homeless waiver. Informed RN Kat. Addendum: 01/09/20 at 1322 by MARTINEZ GAYTAN Amended: Links added.
[2020-01-09 21:13] VITALS: BP 110/62
[2020-01-10] MEDS ORDERED: FLUCONAZOLE 100 MG TAB PO ONE (01:00)
[2020-01-10] MEDS ORDERED: FLUCONAZOLE 100 MG TAB PO SCH (10:00)
== END 2020-01-10 08:28 | disposition home or self-care (01) ==
LOC: ER 04:47
DX: F20.9 Schizophrenia, unspecified (principal); K21.9 Gastro-esophageal reflux disease without esophagitis; E11.9 Type 2 diabetes mellitus without complications; I10 Essential (primary) hypertension; Z88.0 Allergy status to penicillin; Z88.5 Allergy status to narcotic agent; Z88.6 Allergy status to analgesic agent; Z79.899 Other long term (current) drug therapy; Z79.4 Long term (current) use of insulin
CPT/HCPCS: 36415; 70450; 71045; 80053; 80307; 80320; 81001; 82550; 82962; 83605; 83735; 84484; 85025; 93005; 96361; 96372; 96374; 99285; J1630; J1815; J7030

== ENCOUNTER 2020-02-07 09:15 | Emergency (ER) | payer OTHER, MEDICAID ==
[~2020-02-07] VITALS: Ht 154.9 cm; Wt 60.8 kg
[~2020-02-07 09:15] MED LIST changes: -SODIUM CHLORIDE 0.9% 1,000 ML IVB ONE
[2020-02-07] MEDS ORDERED: SODIUM CHLORIDE 0.9% 1,000 ML IV ONE ×2 (09:22)
[2020-02-07 10:04] LABS: Basophils # (auto) 0 10 ^3/uL (0-0.2); Hemoglobin 12.1 g/dL (12.2-16.2); Monocytes # (auto) 0.5 10 ^3/uL (0-1.3); Nucleated Red Blood Cells % 0.1 %
[2020-02-07 10:05] LABS: Basophils % (auto) 0.6 % (0.0-2.0); Eosinophils # (auto) 0.2 10 ^3/uL (0-0.8); Eosinophils % (auto) 2.5 % (0.0-7.0); Hematocrit 38.1 % (36.0-46.0); Lymphocytes % (auto) 16.4 % (10.0-50.0); Mean Corpuscular Hemoglobin 26.1 pg (28.0-32.0); Mean Corpuscular Hgb Conc. 31.9 g/dL (32.0-36.0); Mean Corpuscular Volume 81.9 fL (80.0-100.0); Monocytes % (auto) 7.9 % (0.0-12.0); Neutrophils # (auto) 4.5 10 ^3/uL (1.6-8.6); Neutrophils % (auto) 72.6 % (37.0-80.0); Platelet Count (auto) 198 10^3/uL (140-450); Red Blood Cells 4.65 10^6/uL (4.0-5.20); Red Cell Distribution Width 17.9 % (11.8-14.3); White Blood Cell 6.2 10^3/uL (4.4-10.8)
[2020-02-07] MEDS ORDERED: InsuLIN REG 1unit/0.01ml Soln (100units/ml) IV ONE (10:15)
[2020-02-07 10:25] LABS: Albumin 2.9 g/dL (3.4-5.0); Anion Gap 6 (5-15); Blood Urea Nitrogen 11 mg/dL (7-18); Calcium 7.9 mg/dL (8.5-10.1); Carbon Dioxide 25 mmol/L (21-32); Chloride 99 mmol/L (98-107); Potassium 4.2 mmol/L (3.5-5.1); Sodium 130 mmol/L (136-145)
[2020-02-07 11:02] LABS: Alanine Aminotransferase 18 U/L (13-56); Alkaline Phosphatase 120 U/L (45-117); Aspartate Aminotransferase 11 U/L (15-37); BUN/Creatinine Ratio 18.3; Bilirubin, Total 0.4 mg/dL (0.2-1.0); GFR African American 132 mL/min; GFR Non-African American 109 mL/min; Total Protein 6.1 g/dL (6.4-8.2)
[2020-02-07 11:08] LABS: Blood Alcohol < 3.0 mg/dL (0-5); Glucose 564 mg/dL (74-106)
[2020-02-07 14:14] VITALS: BP 127/57
== END 2020-02-07 14:47 | disposition left against medical advice (07) ==
LOC: ER 09:15 → EDBD 09:15 → ER 14:47
DX: F20.1 Disorganized schizophrenia (principal); E11.65 Type 2 diabetes mellitus with hyperglycemia; E86.0 Dehydration; I10 Essential (primary) hypertension; K21.9 Gastro-esophageal reflux disease without esophagitis; E78.5 Hyperlipidemia, unspecified; J45.909 Unspecified asthma, uncomplicated; Z90.710 Acquired absence of both cervix and uterus; Z79.899 Other long term (current) drug therapy; Z79.84 Long term (current) use of oral hypoglycemic drugs; Z88.0 Allergy status to penicillin; Z88.5 Allergy status to narcotic agent; Z88.6 Allergy status to analgesic agent; Z88.1 Allergy status to other antibiotic agents
CPT/HCPCS: 36415; 70450; 71045; 80053; 80320; 82962; 84484; 85025; 93005; 96361; 96365; 99285; J1815; J7030

== ENCOUNTER → 2020-02-07 | Emergency (ER) | payer OTHER, MEDICAID ==
[~2020-02-07] VITALS: Ht 154.9 cm; Wt 60.8 kg
[~2020-02-07] MED LIST changes: +SODIUM CHLORIDE 0.9% 1,000 ML IVB ONE
[2020-02-07 17:24] VITALS: BP 110/58
[2020-02-07 19:08] LABS: Basophils # (auto) 0.1 10 ^3/uL (0-0.2); Eosinophils # (auto) 0.2 10 ^3/uL (0-0.8); Lymphocytes # (auto) 1.6 10 ^3/uL (0.4-5.4); Mean Corpuscular Volume 81.3 fL (80.0-100.0); Monocytes # (auto) 0.7 10 ^3/uL (0-1.3); Monocytes % (auto) 8.1 % (0.0-12.0); Neutrophils # (auto) 6.2 10 ^3/uL (1.6-8.6); White Blood Cell 8.7 10^3/uL (4.4-10.8)
[2020-02-07 19:10] LABS: Basophils % (auto) 0.6 % (0.0-2.0); Eosinophils % (auto) 2.1 % (0.0-7.0); Hemoglobin 12.1 g/dL (12.2-16.2); Lymphocytes % (auto) 18.2 % (10.0-50.0); Mean Corpuscular Hemoglobin 25.9 pg (28.0-32.0); Mean Corpuscular Hgb Conc. 31.8 g/dL (32.0-36.0); Nucleated Red Blood Cells % 0.1 %; Platelet Count (auto) 205 10^3/uL (140-450); Red Blood Cells 4.68 10^6/uL (4.0-5.20); Red Cell Distribution Width 17.8 % (11.8-14.3)
[2020-02-07 19:30] LABS: Albumin 3.1 g/dL (3.4-5.0); Potassium 3.7 mmol/L (3.5-5.1)
[2020-02-07 19:33] LABS: BUN/Creatinine Ratio 17.2
[2020-02-07 19:35] LABS: Bilirubin, Total 0.4 mg/dL (0.2-1.0); Total Protein 6.2 g/dL (6.4-8.2)
== END | disposition home or self-care (01) ==
LOC: EDUNIT# 17:01 → EDBD 17:11 → ER 17:11
DX: F20.9 Schizophrenia, unspecified (principal); E86.0 Dehydration; M19.90 Unspecified osteoarthritis, unspecified site; J45.909 Unspecified asthma, uncomplicated; E11.9 Type 2 diabetes mellitus without complications; K21.9 Gastro-esophageal reflux disease without esophagitis; E78.5 Hyperlipidemia, unspecified; I10 Essential (primary) hypertension; Z88.0 Allergy status to penicillin; Z88.1 Allergy status to other antibiotic agents; Z88.6 Allergy status to analgesic agent
CPT/HCPCS: 36415; 80053; 82962; 85025; 93005

== ENCOUNTER 2020-05-05 04:49 | Emergency (ER) | payer OTHER, MEDICAID ==
[~2020-05-05] VITALS: Ht 160 cm; Wt 60.3 kg
[2020-05-05] MEDS ORDERED: SODIUM CHLORIDE 0.9% 2,000 ML IV ONE (05:15)
[2020-05-05] MEDS ORDERED: InsuLIN REG 1unit/0.01ml Soln (100units/ml) IV ONE ×4 (05:15→10:00)
[2020-05-05 05:21] LABS: Basophils # (auto) 0.1 10 ^3/uL (0-0.2); Eosinophils # (auto) 0.2 10 ^3/uL (0-0.8); Mean Corpuscular Hemoglobin 26.6 pg (28.0-32.0); Mean Corpuscular Hgb Conc. 32.3 g/dL (32.0-36.0); Monocytes # (auto) 0.6 10 ^3/uL (0-1.3); Nucleated Red Blood Cells % 0.1 %
[2020-05-05 05:22] LABS: Basophils % (auto) 0.8 % (0.0-2.0); Eosinophils % (auto) 2.5 % (0.0-7.0); Hematocrit 43.6 % (36.0-46.0); Hemoglobin 14.1 g/dL (12.2-16.2); Lymphocytes # (auto) 2.1 10 ^3/uL (0.4-5.4); Mean Corpuscular Volume 82.5 fL (80.0-100.0); Monocytes % (auto) 10.1 % (0.0-12.0); Neutrophils # (auto) 3.5 10 ^3/uL (1.6-8.6); Neutrophils % (auto) 54.6 % (37.0-80.0); Platelet Count (auto) 230 10^3/uL (140-450); Red Blood Cells 5.28 10^6/uL (4.0-5.20); Red Cell Distribution Width 17.2 % (11.8-14.3); White Blood Cell 6.4 10^3/uL (4.4-10.8)
[2020-05-05 05:36] LABS: INR 0.92 (0.9-1.15); Partial Thromboplastin Time 23.2 sec (23.0-31.2)
[2020-05-05 05:38] LABS: Albumin 3.5 g/dL (3.4-5.0); Anion Gap 6 (5-15); Blood Urea Nitrogen 9 mg/dL (7-18); Carbon Dioxide 28 mmol/L (21-32); Chloride 101 mmol/L (98-107); Potassium 3.4 mmol/L (3.5-5.1); Sodium 135 mmol/L (136-145)
[2020-05-05 05:40] LABS: Glucose 464 mg/dL (74-106)
[2020-05-05 05:43] LABS: Alanine Aminotransferase 23 U/L (13-56); Alkaline Phosphatase 143 U/L (45-117); Aspartate Aminotransferase 11 U/L (15-37); BUN/Creatinine Ratio 14.8; Bilirubin, Total 0.2 mg/dL (0.2-1.0); GFR African American 129 mL/min; GFR Non-African American 107 mL/min; Total Protein 6.9 g/dL (6.4-8.2)
[2020-05-05 05:48] LABS: Urine Bacteria FEW /hpf (None Seen); Urine Blood Negative /uL (Negative); Urine Specific Gravity 1.033 (1.001-1.035); Urine WBC 1 /hpf (0 - 5)
[2020-05-05] MEDS ORDERED: SODIUM CHLORIDE 0.9% 1,000 ML IV ONE ×2 (06:45→07:40)
[2020-05-05] MEDS ORDERED: POTASSIUM EFFERVESENT TAB 25 MEQ PO ONE (07:45)
[2020-05-05 07:50] LABS: Alcohol, Urine < 3.0 mg/dL (0-10); Amphetamine Screen, Urine NEGATIVE (NEGATIVE); Barbiturate Scree,Urine NEGATIVE (NEGATIVE); Benzodiazephine Screen, Urine NEGATIVE (NEGATIVE); Cannabinoid Screen, Urine NEGATIVE (NEGATIVE); Cocaine Screen, Urine NEGATIVE (NEGATIVE); Opiate Scree,Urine NEGATIVE (NEGATIVE); Phencyclidine Screen, Urine NEGATIVE (NEGATIVE)
[2020-05-05 09:38] VITALS: BP 109/49
== END 2020-05-05 10:19 | disposition home or self-care (01) ==
LOC: EDBD 04:49 → ER 04:49
DX: R07.89 Other chest pain (principal); E11.65 Type 2 diabetes mellitus with hyperglycemia; E86.0 Dehydration; I10 Essential (primary) hypertension; K21.9 Gastro-esophageal reflux disease without esophagitis; E78.5 Hyperlipidemia, unspecified; Z90.710 Acquired absence of both cervix and uterus; Z88.0 Allergy status to penicillin; Z88.5 Allergy status to narcotic agent; Z88.1 Allergy status to other antibiotic agents
CPT/HCPCS: 36415; 71045; 80053; 80307; 81001; 82962; 83735; 84484; 85025; 85610; 85730; 96361; 96374; 96376; 99285; J1815; J7030

== ENCOUNTER 2020-09-10 11:51 | Emergency (ER) | payer MEDICAID, OTHER ==
[~2020-09-10] VITALS: Ht 154.9 cm; Wt 54.4 kg
[~2020-09-10 11:51] MED LIST changes: +RABE20TA19 PO; -RABE20TA5 PO
[2020-09-10 11:56] VITALS: BP 153/55
[2020-09-10] MEDS ORDERED: IBUPROFEN 600 MG TAB PO ONE (13:45)
== END 2020-09-10 14:07 | disposition home or self-care (01) ==
LOC: ER 11:51
DX: H66.91 Otitis media, unspecified, right ear (principal); J04.0 Acute laryngitis; J45.909 Unspecified asthma, uncomplicated; E11.9 Type 2 diabetes mellitus without complications; K21.9 Gastro-esophageal reflux disease without esophagitis; E78.5 Hyperlipidemia, unspecified; I10 Essential (primary) hypertension; Z90.49 Acquired absence of other specified parts of digestive tract; Z59.0 Homelessness; Z90.710 Acquired absence of both cervix and uterus

== ENCOUNTER 2020-12-31 11:20 | Inpatient (IN) | payer OTHER, MEDICAID ==
[~2020-12-31] VITALS: Ht 154.9 cm; Wt 56.4 kg
[2020-12-31] MEDS ORDERED: InsuLIN REG 1unit/0.01ml Soln (100units/ml) IV ONE (12:00)
[2020-12-31] MEDS ORDERED: SODIUM CHLORIDE 0.9% 1,000 ML IV ONE (12:00)
[2020-12-31 12:12] LABS: Basophils # (auto) 0.1 10 ^3/uL (0-0.2); Eosinophils # (auto) 0.2 10 ^3/uL (0-0.8); Eosinophils % (auto) 1.6 % (0.0-7.0); Hemoglobin 9.8 g/dL (12.2-16.2); Lymphocytes # (auto) 1.3 10 ^3/uL (0.4-5.4); Mean Corpuscular Hemoglobin 20.6 pg (28.0-32.0); Monocytes % (auto) 8.1 % (0.0-12.0); Red Blood Cells 4.75 10^6/uL (4.0-5.20)
[2020-12-31 12:14] LABS: Basophils % (auto) 0.6 % (0.0-2.0); Hematocrit 32.3 % (36.0-46.0); Lymphocytes % (auto) 12.7 % (10.0-50.0); Mean Corpuscular Hgb Conc. 30.3 g/dL (32.0-36.0); Monocytes # (auto) 0.8 10 ^3/uL (0-1.3); Nucleated Red Blood Cells % 0.2 %; Platelet Count (auto) 235 10^3/uL (140-450); Red Cell Distribution Width 19.2 % (11.8-14.3); White Blood Cell 10.4 10^3/uL (4.4-10.8)
[2020-12-31 13:01] LABS: Albumin 2.9 g/dL (3.4-5.0); Calcium 8.3 mg/dL (8.5-10.1); Potassium 4.5 mmol/L (3.5-5.1)
[2020-12-31 13:10] LABS: Bilirubin, Total 0.2 mg/dL (0.2-1.0); Total Protein 7.1 g/dL (6.4-8.2)
[2020-12-31] MEDS ORDERED: SODIUM CHLORIDE 0.9% 2,000 ML IV ONE (17:15)
[2020-12-31] MEDS ORDERED: NITROGLYCERIN 0.4 MG SL TAB SL PRN (17:30)
[2020-12-31] MEDS ORDERED: DOCUSATE CALCIUM 240 MG CAP PO PRN (17:30)
[2020-12-31] MEDS ORDERED: DEXTROSE (50%) 50ML SYRG IV PRN (17:30)
[2020-12-31] MEDS ORDERED: LABETALOL HCL 5 MG/ML 4ML SYRINGE IV PRN (17:30)
[2020-12-31] MEDS ORDERED: MORPHINE SULF INJ 2 MG/ML SYRINGE 1ML IV PRN (17:30)
[2020-12-31] MEDS ORDERED: ONDANSETRON HCL 4 MG/2 ML VIAL IV PRN (17:30)
[2020-12-31] MEDS ORDERED: ACETAMINOPHEN 500 MG TAB PO PRN (17:30)
[2020-12-31] MEDS ORDERED: ALBUTEROL SULF 2.5 MG/0.5ML(0.5%) NEB SOLN NEB PRN (17:30)
[2020-12-31] MEDS: CLINDAMYCIN 300MG IV 50 ML IV SCH (18:19)
[2020-12-31] MEDS: ENOXAPARIN SOD 40 MG/0.4 ML SYRINGE SC SCH (18:19)
[2020-12-31 18:51] VITALS: BP 141/65
[2020-12-31 21:46] VITALS: BP 132/74
[2020-12-31 22:00] VITALS: BP 132/74
[2020-12-31] MEDS ORDERED: LORazepam 0.5 MG TAB PO PRN (22:00)
[2020-12-31] MEDS: ACCU-CHEK COMFORT CURVE STRIP VI SCH (22:50)
[2020-12-31] MEDS: MUPIROCIN 2% OINT 15gm or 22gm TOP SCH (22:51)
[2020-12-31] MEDS: InsuLIN REG 1unit/0.01ml Soln (100units/ml) SC SCH (23:07)
[2020-12-31] MEDS: SODIUM CHLORIDE 0.9% 1,000 ML IV SCH (23:23)
[2021-01-01] MEDS: ACCU-CHEK COMFORT CURVE STRIP VI SCH ×7 (00:03→23:57)
[2021-01-01] MEDS: InsuLIN REG 1unit/0.01ml Soln (100units/ml) SC SCH ×6 (00:14→21:58)
[2021-01-01] MEDS: CLINDAMYCIN 300MG IV 50 ML IV SCH ×3 (02:09→18:39)
[2021-01-01] MEDS: SODIUM CHLORIDE 0.9% 1,000 ML IV SCH ×3 (02:09→17:30)
[2021-01-01 05:00] VITALS: BP 110/61
[2021-01-01 06:50] LABS: INR 0.96 (0.9-1.15)
[2021-01-01 06:51] LABS: Basophils # (auto) 0.1 10 ^3/uL (0-0.2); Basophils % (auto) 0.6 % (0.0-2.0); Eosinophils # (auto) 0.1 10 ^3/uL (0-0.8); Hematocrit 28.6 % (36.0-46.0); Hemoglobin 8.7 g/dL (12.2-16.2); Lymphocytes # (auto) 1.8 10 ^3/uL (0.4-5.4); Lymphocytes % (auto) 21.4 % (10.0-50.0); Mean Corpuscular Hemoglobin 20.4 pg (28.0-32.0); Mean Corpuscular Hgb Conc. 30.3 g/dL (32.0-36.0); Mean Corpuscular Volume 67.2 fL (80.0-100.0); Monocytes # (auto) 0.8 10 ^3/uL (0-1.3); Monocytes % (auto) 9.6 % (0.0-12.0); Neutrophils # (auto) 5.7 10 ^3/uL (1.6-8.6); Neutrophils % (auto) 67.4 % (37.0-80.0); Nucleated Red Blood Cells % 0.1 %; Platelet Count (auto) 223 10^3/uL (140-450); Potassium 3.6 mmol/L (3.5-5.1); Red Blood Cells 4.25 10^6/uL (4.0-5.20); Red Cell Distribution Width 19.2 % (11.8-14.3); White Blood Cell 8.5 10^3/uL (4.4-10.8)
[2021-01-01 07:03] LABS: Albumin 2.4 g/dL (3.4-5.0); BUN/Creatinine Ratio 68.8; Bilirubin, Total 0.2 mg/dL (0.2-1.0); Calcium 7.8 mg/dL (8.5-10.1); Total Protein 5.7 g/dL (6.4-8.2)
[2021-01-01 08:35] VITALS: BP 142/90
[2021-01-01] MEDS: MUPIROCIN 2% OINT 15gm or 22gm TOP SCH ×2 (10:06→21:50)
[2021-01-01] MEDS: ENOXAPARIN SOD 40 MG/0.4 ML SYRINGE SC SCH (10:06)
[2021-01-01] MEDS: PANTOPRAZOLE 40 MG TAB PO SCH (10:06)
[2021-01-01 10:35] LABS: Urine Bacteria NONE SEEN /hpf (None Seen); Urine Blood Negative /uL (Negative); Urine Specific Gravity 1.011 (1.001-1.035); Urine WBC 7 /hpf (0 - 5)
[2021-01-01 10:50] LABS: Amphetamine Screen, Urine NEGATIVE (NEGATIVE); Barbiturate Scree,Urine NEGATIVE (NEGATIVE); Benzodiazephine Screen, Urine NEGATIVE (NEGATIVE); Cannabinoid Screen, Urine NEGATIVE (NEGATIVE); Cocaine Screen, Urine NEGATIVE (NEGATIVE); Opiate Scree,Urine NEGATIVE (NEGATIVE); Phencyclidine Screen, Urine NEGATIVE (NEGATIVE)
[2021-01-01 13:00] VITALS: BP 147/73
[2021-01-01 16:59] VITALS: BP 139/62
[2021-01-01] MEDS: MORPHINE SULF INJ 2 MG/ML SYRINGE 1ML IV PRN (19:49)
[2021-01-01 21:04] VITALS: BP 124/70
[2021-01-02] VITALS (7 sets, daily range): BP systolic 98–144; BP diastolic 53–69
[2021-01-02] MEDS: InsuLIN REG 1unit/0.01ml Soln (100units/ml) SC SCH ×7 (00:01→23:58)
[2021-01-02] MEDS: SODIUM CHLORIDE 0.9% 1,000 ML IV SCH ×3 (01:24→17:07)
[2021-01-02] MEDS: CLINDAMYCIN 300MG IV 50 ML IV SCH ×3 (01:25→17:07)
[2021-01-02] MEDS: MORPHINE SULF INJ 2 MG/ML SYRINGE 1ML IV PRN ×4 (03:56→19:49)
[2021-01-02] MEDS: ACCU-CHEK COMFORT CURVE STRIP VI SCH ×6 (04:08→23:56)
[2021-01-02] MEDS: clonazePAM 0.5 MG TAB PO SCH (09:23)
[2021-01-02] MEDS: PANTOPRAZOLE 40 MG TAB PO SCH (09:23)
[2021-01-02] MEDS: ENOXAPARIN SOD 40 MG/0.4 ML SYRINGE SC SCH (09:24)
[2021-01-02] MEDS: MUPIROCIN 2% OINT 15gm or 22gm TOP SCH ×2 (09:24→22:13)
[2021-01-03] MEDS: MORPHINE SULF INJ 2 MG/ML SYRINGE 1ML IV PRN ×5 (00:01→21:16)
[2021-01-03] MEDS: CLINDAMYCIN 300MG IV 50 ML IV SCH ×3 (01:13→18:01)
[2021-01-03] MEDS: SODIUM CHLORIDE 0.9% 1,000 ML IV SCH ×3 (01:13→18:01)
[2021-01-03] MEDS: InsuLIN REG 1unit/0.01ml Soln (100units/ml) SC SCH ×6 (04:00→23:53)
[2021-01-03] MEDS: ACCU-CHEK COMFORT CURVE STRIP VI SCH ×6 (04:05→23:50)
[2021-01-03 05:00] VITALS: BP 135/76
[2021-01-03 08:15] VITALS: BP 110/73
[2021-01-03 08:52] VITALS: BP 110/73
[2021-01-03] MEDS: clonazePAM 0.5 MG TAB PO SCH (09:13)
[2021-01-03] MEDS: PANTOPRAZOLE 40 MG TAB PO SCH (09:13)
[2021-01-03] MEDS: MUPIROCIN 2% OINT 15gm or 22gm TOP SCH ×2 (09:14→22:24)
[2021-01-03] MEDS: ENOXAPARIN SOD 40 MG/0.4 ML SYRINGE SC SCH (09:14)
[2021-01-03 13:05] VITALS: BP 125/69
[2021-01-03 17:00] VITALS: BP 108/61
[2021-01-03 22:00] VITALS: BP 124/55
[2021-01-04] VITALS (7 sets, daily range): BP systolic 108–128; BP diastolic 55–75
[2021-01-04] MEDS: SODIUM CHLORIDE 0.9% 1,000 ML IV SCH ×2 (01:34→09:30)
[2021-01-04] MEDS: CLINDAMYCIN 300MG IV 50 ML IV SCH ×3 (01:34→18:21)
[2021-01-04] MEDS: MORPHINE SULF INJ 2 MG/ML SYRINGE 1ML IV PRN ×2 (02:48→18:41)
[2021-01-04] MEDS: ACCU-CHEK COMFORT CURVE STRIP VI SCH ×5 (03:53→20:00)
[2021-01-04] MEDS: InsuLIN REG 1unit/0.01ml Soln (100units/ml) SC SCH ×5 (03:59→21:05)
[2021-01-04] MEDS: MUPIROCIN 2% OINT 15gm or 22gm TOP SCH ×2 (10:00→23:27)
[2021-01-04] MEDS: ENOXAPARIN SOD 40 MG/0.4 ML SYRINGE SC SCH (11:07)
[2021-01-04] MEDS: clonazePAM 0.5 MG TAB PO SCH (11:07)
[2021-01-04] MEDS: PANTOPRAZOLE 40 MG TAB PO SCH (11:07)
[2021-01-04] MEDS: metFORMIN HYDROCHLORIDE 500 MG TAB PO SCH (18:22)
[2021-01-05] MEDS: ACCU-CHEK COMFORT CURVE STRIP VI SCH ×4 (00:21→12:00)
[2021-01-05] MEDS: InsuLIN REG 1unit/0.01ml Soln (100units/ml) SC SCH ×4 (00:23→12:00)
[2021-01-05] MEDS: MORPHINE SULF INJ 2 MG/ML SYRINGE 1ML IV PRN ×4 (00:46→12:33)
[2021-01-05] MEDS: CLINDAMYCIN 300MG IV 50 ML IV SCH ×2 (02:37→09:23)
[2021-01-05 05:00] VITALS: BP 119/67
[2021-01-05 06:36] LABS: Eosinophils # (auto) 0.2 10 ^3/uL (0-0.8); Eosinophils % (auto) 4.3 % (0.0-7.0); Lymphocytes # (auto) 1.8 10 ^3/uL (0.4-5.4); Monocytes # (auto) 0.5 10 ^3/uL (0-1.3); Monocytes % (auto) 10.4 % (0.0-12.0); Neutrophils # (auto) 2.4 10 ^3/uL (1.6-8.6)
[2021-01-05 06:40] LABS: Basophils # (auto) 0.1 10 ^3/uL (0-0.2); Basophils % (auto) 1.4 % (0.0-2.0); Hematocrit 29.4 % (36.0-46.0); Mean Corpuscular Hemoglobin 20.3 pg (28.0-32.0); Mean Corpuscular Hgb Conc. 30.6 g/dL (32.0-36.0); Mean Corpuscular Volume 66.5 fL (80.0-100.0); Neutrophils % (auto) 47.9 % (37.0-80.0); Platelet Count (auto) 225 10^3/uL (140-450); Red Blood Cells 4.42 10^6/uL (4.0-5.20); Red Cell Distribution Width 19.1 % (11.8-14.3); White Blood Cell 4.9 10^3/uL (4.4-10.8)
[2021-01-05 06:45] LABS: BUN/Creatinine Ratio 44.4; Calcium 8.1 mg/dL (8.5-10.1); Magnesium 1.8 mg/dL (1.6-2.6); Potassium 4.1 mmol/L (3.5-5.1)
[2021-01-05 07:47] VITALS: BP 125/77
[2021-01-05 08:00] VITALS: BP 125/77
[2021-01-05] MEDS: metFORMIN HYDROCHLORIDE 500 MG TAB PO SCH (08:30)
[2021-01-05] MEDS: clonazePAM 0.5 MG TAB PO SCH ×2 (09:45→09:56)
[2021-01-05] MEDS: PANTOPRAZOLE 40 MG TAB PO SCH ×2 (09:45→09:57)
[2021-01-05] MEDS: ENOXAPARIN SOD 40 MG/0.4 ML SYRINGE SC SCH ×2 (09:46→09:57)
[2021-01-05] MEDS: MUPIROCIN 2% OINT 15gm or 22gm TOP SCH (10:00)
== END 2021-01-05 09:45 | disposition left against medical advice (07) | DRG 602 ==
LOC: ER 11:20 → TELE 17:16 → TELE-EAST 20:24
PROVIDERS: ADMIT Family Medicine; ATTEND Internal Medicine Geriatric Medicine
DX: L01.00 Impetigo, unspecified (principal); G93.41 Metabolic encephalopathy; U07.1 COVID-19; E87.1 Hypo-osmolality and hyponatremia; E11.65 Type 2 diabetes mellitus with hyperglycemia; I10 Essential (primary) hypertension; D64.9 Anemia, unspecified; F20.9 Schizophrenia, unspecified; F31.9 Bipolar disorder, unspecified; Z20.822 Contact with and (suspected) exposure to COVID-19; J45.909 Unspecified asthma, uncomplicated; E87.8 Other disorders of electrolyte and fluid balance, not elsewhere classified; Z53.29 Procedure and treatment not carried out because of patient's decision for other reasons; K21.9 Gastro-esophageal reflux disease without esophagitis; M19.90 Unspecified osteoarthritis, unspecified site; E78.5 Hyperlipidemia, unspecified; F17.210 Nicotine dependence, cigarettes, uncomplicated; Z59.0 Homelessness; Z79.4 Long term (current) use of insulin; Z82.3 Family history of stroke; Z83.3 Family history of diabetes mellitus; Z85.3 Personal history of malignant neoplasm of breast; Z90.710 Acquired absence of both cervix and uterus; Z91.14 Patient's other noncompliance with medication regimen; Z91.19 Patient's noncompliance with other medical treatment and regimen; Z88.1 Allergy status to other antibiotic agents; Z88.0 Allergy status to penicillin; Z88.6 Allergy status to analgesic agent; Z88.8 Allergy status to other drugs, medicaments and biological substances
CPT/HCPCS: 36415; 71045; 80048; 80053; 80307; 80320; 81001; 82010; 82962; 83036; 83735; 84443; 85025; 85610; 87081; 87426; 93005; 96361; 96374; 99291; G0378; J1815; J3490

== ENCOUNTER 2021-01-08 00:57 | Emergency (ER) | payer OTHER, MEDICAID ==
[~2021-01-08] VITALS: Ht 162.6 cm; Wt 68.0 kg
[2021-01-08 02:08] LABS: Eosinophils # (auto) 0.3 10 ^3/uL (0-0.8); Hemoglobin 9.5 g/dL (12.2-16.2); Mean Corpuscular Volume 66.2 fL (80.0-100.0); Nucleated Red Blood Cells % 0.1 %
[2021-01-08 02:09] LABS: Basophils # (auto) 0.1 10 ^3/uL (0-0.2); Basophils % (auto) 1.1 % (0.0-2.0); Eosinophils % (auto) 3.6 % (0.0-7.0); Hematocrit 30.8 % (36.0-46.0); Lymphocytes # (auto) 2.6 10 ^3/uL (0.4-5.4); Lymphocytes % (auto) 33.5 % (10.0-50.0); Mean Corpuscular Hemoglobin 20.5 pg (28.0-32.0); Mean Corpuscular Hgb Conc. 30.9 g/dL (32.0-36.0); Monocytes # (auto) 0.6 10 ^3/uL (0-1.3); Monocytes % (auto) 7.8 % (0.0-12.0); Neutrophils # (auto) 4.1 10 ^3/uL (1.6-8.6); Platelet Count (auto) 322 10^3/uL (140-450); Red Blood Cells 4.66 10^6/uL (4.0-5.20); Red Cell Distribution Width 18.7 % (11.8-14.3); White Blood Cell 7.7 10^3/uL (4.4-10.8)
[2021-01-08 02:21] LABS: BUN/Creatinine Ratio 46.2; Calcium 9.3 mg/dL (8.5-10.1); Potassium 3.7 mmol/L (3.5-5.1)
[2021-01-08 02:22] LABS: Salicylate 1.8 mg/dL (2.8-20.0)
[2021-01-08 02:28] LABS: Acetaminophen < 2.0 ug/mL (10-30)
[2021-01-08 05:49] LABS: Urine Bacteria NONE SEEN /hpf (None Seen); Urine Blood Negative /uL (Negative); Urine Hyaline Cast FEW /lpf (0 - 2); Urine WBC 3 /hpf (0 - 5)
[2021-01-08 06:09] LABS: Alcohol, Urine < 3.0 mg/dL (0-10); Amphetamine Screen, Urine POSITIVE (NEGATIVE); Barbiturate Scree,Urine NEGATIVE (NEGATIVE); Benzodiazephine Screen, Urine NEGATIVE (NEGATIVE); Cannabinoid Screen, Urine NEGATIVE (NEGATIVE); Cocaine Screen, Urine NEGATIVE (NEGATIVE); Opiate Scree,Urine NEGATIVE (NEGATIVE); Phencyclidine Screen, Urine NEGATIVE (NEGATIVE)
[2021-01-08] MEDS ORDERED: cefTRIAXone 1GM/50ML D5W 50 ML IV ONE (06:30)
[2021-01-08] MEDS ORDERED: InsuLIN REG 1unit/0.01ml Soln (100units/ml) IV ONE (06:30)
[2021-01-08] MEDS ORDERED: SODIUM CHLORIDE 0.9% 1,000 ML IV ONE (06:30)
[2021-01-08 07:31] VITALS: BP 109/53
== END 2021-01-08 07:57 | disposition home or self-care (01) ==
LOC: EDBD 00:57 → EDUNIT# 00:57 → ER 01:02
DX: E11.65 Type 2 diabetes mellitus with hyperglycemia (principal); R93.429 Abnormal radiologic findings on diagnostic imaging of unspecified kidney; M79.672 Pain in left foot; M79.671 Pain in right foot; J45.909 Unspecified asthma, uncomplicated; E11.9 Type 2 diabetes mellitus without complications; K21.9 Gastro-esophageal reflux disease without esophagitis; E78.5 Hyperlipidemia, unspecified; F17.210 Nicotine dependence, cigarettes, uncomplicated; Z90.710 Acquired absence of both cervix and uterus; Z90.89 Acquired absence of other organs; Z88.0 Allergy status to penicillin; Z88.1 Allergy status to other antibiotic agents; Z88.6 Allergy status to analgesic agent; Z88.8 Allergy status to other drugs, medicaments and biological substances; Z79.4 Long term (current) use of insulin; Z79.899 Other long term (current) drug therapy
CPT/HCPCS: 36415; 70450; 80048; 80307; 80329; 81001; 82962; 83605; 85025; 96365; 96375; 99285; J0696; J1815; J7030